=== PATIENT | female | born 1965 | race Caucasian/White ===

== ENCOUNTER 2019-02-10 19:20 | Emergency (ER) | payer OTHER ==
[~2019-02-10] VITALS: Ht 165.1 cm; Wt 69.1 kg
[~2019-02-10 19:20] MED LIST: DOCU250C91 PO; FAMO-135 PO; LORA0.5T2 PO; MACR100 PO; METF-960 PO; RISP.5 PO
[2019-02-10 20:09] LABS: GLUCOSE,POINT OF CARE 116 MG/DL (70-110)
[2019-02-10 21:30] VITALS: BP 110/78
[2019-02-10] MEDS ORDERED: IBUPROFEN 600 MG TABLET PO ONE (22:15)
== END 2019-02-10 22:18 | disposition home or self-care (01) ==
LOC: EMS 19:20
DX: S80.02XA Contusion of left knee, initial encounter (principal); I10 Essential (primary) hypertension; E11.9 Type 2 diabetes mellitus without complications; Z88.8 Allergy status to other drugs, medicaments and biological substances; Z79.899 Other long term (current) drug therapy; W05.0XXA Fall from non-moving wheelchair, initial encounter; Y93.89 Activity, other specified; Y92.89 Other specified places as the place of occurrence of the external cause; Y99.8 Other external cause status

== ENCOUNTER 2024-10-09 12:56 | Inpatient (IN) | payer OTHER ==
[~2024-10-09] VITALS: Ht 165.1 cm; Wt 70.5 kg
[~2024-10-09 12:56] MED LIST changes: +ACET-2247 PO; +CHOL500043 PO; +DOCU-412 PO; -DOCU250C91 PO; -FAMO-135 PO; +INSU100V SQ; +LEVE-71 PO; +LEVO-72 PO; -LORA0.5T2 PO; -MACR100 PO; +MAGN-169 PO; +METF-1211 PO; -METF-960 PO; +MULT-1239 PO; +PANT-31 PO; +QUET25TA PO; -RISP.5 PO; +RISP2TAB45 PO
[2024-10-09] MEDS ORDERED: 0.9% SODIUM CHLORIDE 10 ML SYRINGE IVP PRN (13:30)
[2024-10-09] MEDS: SODIUM CHLORIDE 0.9% 2,100 ML IV ONE (13:54)
[2024-10-09 13:56] LABS: BASOPHILS % (AUTO) 0.5 % (0.0-2.0); EOSINOPHILS % (AUTO) 1.1 % (1.0-6.0); HEMOGLOBIN 13.2 g/dL (12.0-16.0); LYMPHOCYTES # (AUTO) 1.3 K/uL (1.0-4.8); LYMPHOCYTES % (AUTO) 28.8 % (22.0-44.0); MEAN CORPUSCULAR HEMOGLOBIN 32.2 pg (26.0-34.0); MEAN CORPUSCULAR HGB CONC 33.8 G/dL (31.0-37.0); MEAN CORPUSCULAR VOLUME 95 fL (80-100); MONOCYTES # (AUTO) 0.4 K/uL (0.1-1.0); MONOCYTES % (AUTO) 7.8 % (2.0-9.0); NEUTROPHILS # (AUTO) 2.9 K/uL (1.8-7.7); NEUTROPHILS % (AUTO) 61.8 % (40.0-70.0); PLATELET COUNT (AUTO) 156 K/uL (150-450); RED BLOOD CELL COUNT(AUTO) 4.09 MIL/uL (4.00-5.20); RED CELL DISTRIBUTION WIDTH 13.7 % (11.5-14.5); WHITE BLOOD COUNT (AUTO) 4.6 K/uL (4.5-11.0)
[2024-10-09 14:02] LABS: ANION GAP 4 mmol/L (8-16); CALCIUM, TOTAL 9.6 mg/dL (8.8-10.5); CARBON DIOXIDE 34 mmol/L (22-29); CHLORIDE 103 mmol/L (98-107); CREATININE 0.64 mg/dL (0.60-1.30); GLOMERULAR FILTR. RATE CALC > 60 mL/min (>60); GLUCOSE,RANDOM 91 mg/dL (70-110); POTASSIUM 4.1 mmol/L (3.5-5.1); PROTHROMBIN TIME 11.4 SEC (9.4-11.6); SODIUM SERUM 141 mmol/L (136-145); UREA NITROGEN, BLOOD 11 mg/dL (7-18)
[2024-10-09 14:10] LABS: TROPONIN I-HIGH SENSITIVITY 5 ng/L (<51)
[2024-10-09 14:13] LABS: LACTIC ACID 1.3 mmol/L (0.4-2.0)
[2024-10-09] MEDS: VANCOMYCIN 1.5 GM/WATER(PEG) 300 ML IV ONE (14:23)
[2024-10-09] MEDS ORDERED: MULT-1303 PO (16:30)
[2024-10-09] MEDS ORDERED: HYDROCODONE/ACETAMINOPHEN 5-325 MG TABLET PO PRN (16:30)
[2024-10-09] MEDS ORDERED: MAGNESIUM HYDROXIDE SUSPENSION 30 ML UDCUP PO PRN (16:30)
[2024-10-09] MEDS ORDERED: LEVE-71 PO (16:30)
[2024-10-09] MEDS ORDERED: MORPHINE SULFATE 2 MG/ML SYRINGE IVP PRN (16:30)
[2024-10-09] MEDS ORDERED: SENN-374 PO (16:30)
[2024-10-09] MEDS ORDERED: ACETAMINOPHEN 325 MG TABLET PO PRN (16:30)
[2024-10-09] MEDS ORDERED: ONDANSETRON HCL 4 MG/2 ML VIAL IVP PRN (16:30)
[2024-10-09 19:08] VITALS: BP 149/68; PULSE 88; RESP 18; TEMP 97.4; O2SAT 97
[2024-10-09 20:25] VITALS: BP 140/47; PULSE 89; RESP 18; O2SAT 98
[2024-10-09] MEDS: QUEtiapine FUMARATE 25 MG TABLET PO SCH (20:43)
[2024-10-09] MEDS: DOCUSATE SODIUM 100 MG CAPSULE PO SCH (20:43)
[2024-10-09] MEDS: RisperiDONE 2 MG TABLET PO SCH (20:43)
[2024-10-09] MEDS: VANCOMYCIN 750 MG/WATER(PEG) 150 ML IV SCH (23:24)
[2024-10-09] MEDS: HEPARIN SODIUM,PORCINE 5,000 UNITS/ML VIAL SQ SCH (23:24)
[2024-10-09] MEDS: ZOLPIDEM TARTRATE 5 MG TABLET PO PRN (23:25)
[2024-10-10 05:40] VITALS: BP 121/90; PULSE 80; RESP 18; O2SAT 98
[2024-10-10 06:59] LABS: BASOPHILS % (AUTO) 0.4 % (0.0-2.0); EOSINOPHILS % (AUTO) 1.7 % (1.0-6.0); HEMATOCRIT 35.5 % (36-46); LYMPHOCYTES # (AUTO) 1.1 K/uL (1.0-4.8); LYMPHOCYTES % (AUTO) 28.7 % (22.0-44.0); MEAN CORPUSCULAR HGB CONC 33.8 G/dL (31.0-37.0); MEAN CORPUSCULAR VOLUME 95 fL (80-100); MONOCYTES # (AUTO) 0.4 K/uL (0.1-1.0); MONOCYTES % (AUTO) 10.2 % (2.0-9.0); NEUTROPHILS # (AUTO) 2.3 K/uL (1.8-7.7); PLATELET COUNT (AUTO) 139 K/uL (150-450); RED BLOOD CELL COUNT(AUTO) 3.75 MIL/uL (4.00-5.20); RED CELL DISTRIBUTION WIDTH 13.3 % (11.5-14.5); WHITE BLOOD COUNT (AUTO) 3.9 K/uL (4.5-11.0)
[2024-10-10 07:30] VITALS: BP 133/80; PULSE 67; RESP 18; TEMP 97.9; O2SAT 99
[2024-10-10 07:39] LABS: ANION GAP 6 mmol/L (8-16); CARBON DIOXIDE 31 mmol/L (22-29); CHLORIDE 104 mmol/L (98-107); CREATININE 0.59 mg/dL (0.60-1.30); GLOMERULAR FILTR. RATE CALC > 60 mL/min (>60); GLUCOSE,RANDOM 63 mg/dL (70-110); POTASSIUM 4.2 mmol/L (3.5-5.1); SODIUM SERUM 141 mmol/L (136-145); UREA NITROGEN, BLOOD 7 mg/dL (7-18)
[2024-10-10] MEDS: PANTOPRAZOLE SODIUM 40 MG DR TABLET PO SCH (08:34)
[2024-10-10 20:10] VITALS: BP 148/65; PULSE 84; RESP 18; TEMP 97.4; O2SAT 99
[2024-10-11 04:10] VITALS: BP 142/86; PULSE 72; RESP 18; TEMP 97.6; O2SAT 98
[2024-10-11 06:54] LABS: BASOPHILS % (AUTO) 0.5 % (0.0-2.0); HEMATOCRIT 39.3 % (36-46); HEMOGLOBIN 13.3 g/dL (12.0-16.0); LYMPHOCYTES # (AUTO) 1.3 K/uL (1.0-4.8); LYMPHOCYTES % (AUTO) 29.3 % (22.0-44.0); MEAN CORPUSCULAR HEMOGLOBIN 32.1 pg (26.0-34.0); MEAN CORPUSCULAR HGB CONC 33.9 G/dL (31.0-37.0); MEAN CORPUSCULAR VOLUME 95 fL (80-100); MONOCYTES # (AUTO) 0.4 K/uL (0.1-1.0); MONOCYTES % (AUTO) 7.9 % (2.0-9.0); NEUTROPHILS # (AUTO) 2.8 K/uL (1.8-7.7); NEUTROPHILS % (AUTO) 60.3 % (40.0-70.0); PLATELET COUNT (AUTO) 140 K/uL (150-450); RED BLOOD CELL COUNT(AUTO) 4.15 MIL/uL (4.00-5.20); RED CELL DISTRIBUTION WIDTH 13.8 % (11.5-14.5); WHITE BLOOD COUNT (AUTO) 4.6 K/uL (4.5-11.0)
[2024-10-11 07:04] LABS: ANION GAP 3 mmol/L (8-16); CALCIUM, TOTAL 9.6 mg/dL (8.8-10.5); CARBON DIOXIDE 33 mmol/L (22-29); CHLORIDE 103 mmol/L (98-107); GLOMERULAR FILTR. RATE CALC > 60 mL/min (>60); GLUCOSE,RANDOM 108 mg/dL (70-110); POTASSIUM 4.4 mmol/L (3.5-5.1); SODIUM SERUM 139 mmol/L (136-145); UREA NITROGEN, BLOOD 12 mg/dL (7-18)
[2024-10-11 07:18] LABS: VANCOMYCIN,RANDOM 24.7 mcg/mL (25.0-50.0)
[2024-10-11 07:47] VITALS: BP 128/79; PULSE 64; RESP 18; TEMP 98; O2SAT 98
[2024-10-11 20:00] VITALS: BP 128/82; PULSE 88; RESP 18; TEMP 97.6; O2SAT 96
[2024-10-11] MEDS: VANCOMYCIN 750 MG/WATER(PEG) 150 ML IV SCH (20:14)
[2024-10-12 04:32] VITALS: BP 129/60; PULSE 73; RESP 18; TEMP 96.7; O2SAT 99
[2024-10-12 07:50] LABS: ANION GAP 3 mmol/L (8-16); CALCIUM, TOTAL 9.6 mg/dL (8.8-10.5); CARBON DIOXIDE 35 mmol/L (22-29); CHLORIDE 103 mmol/L (98-107); CREATININE 0.68 mg/dL (0.60-1.30); GLOMERULAR FILTR. RATE CALC > 60 mL/min (>60); GLUCOSE,RANDOM 104 mg/dL (70-110); POTASSIUM 4.4 mmol/L (3.5-5.1); SODIUM SERUM 141 mmol/L (136-145); UREA NITROGEN, BLOOD 14 mg/dL (7-18)
[2024-10-12 07:57] LABS: BASOPHILS % (AUTO) 0.4 % (0.0-2.0); EOSINOPHILS % (AUTO) 2.4 % (1.0-6.0); HEMOGLOBIN 12.9 g/dL (12.0-16.0); LYMPHOCYTES # (AUTO) 1.2 K/uL (1.0-4.8); LYMPHOCYTES % (AUTO) 25.1 % (22.0-44.0); MEAN CORPUSCULAR HGB CONC 33.9 G/dL (31.0-37.0); MEAN CORPUSCULAR VOLUME 94 fL (80-100); MONOCYTES # (AUTO) 0.4 K/uL (0.1-1.0); MONOCYTES % (AUTO) 8.5 % (2.0-9.0); NEUTROPHILS % (AUTO) 63.6 % (40.0-70.0); PLATELET COUNT (AUTO) 132 K/uL (150-450); RED BLOOD CELL COUNT(AUTO) 4.04 MIL/uL (4.00-5.20); RED CELL DISTRIBUTION WIDTH 13.6 % (11.5-14.5); WHITE BLOOD COUNT (AUTO) 4.7 K/uL (4.5-11.0)
[2024-10-12 09:12] VITALS: BP 119/62; PULSE 63; RESP 16; O2SAT 99
[2024-10-12 15:55] VITALS: BP 124/66; PULSE 66; RESP 18; TEMP 97.8; O2SAT 99
[2024-10-12] MEDS: CLINDAMYCIN HCL 300 MG CAPSULE PO SCH (16:41)
[2024-10-12 20:35] VITALS: BP 112/76; PULSE 84; RESP 18; TEMP 98.3; O2SAT 99
[2024-10-13 05:26] VITALS: BP 119/65; PULSE 64; RESP 18; TEMP 98.5; O2SAT 98
[2024-10-13 07:19] LABS: ANION GAP 4 mmol/L (8-16); CALCIUM, TOTAL 9.6 mg/dL (8.8-10.5); CARBON DIOXIDE 34 mmol/L (22-29); CHLORIDE 102 mmol/L (98-107); CREATININE 0.64 mg/dL (0.60-1.30); GLOMERULAR FILTR. RATE CALC > 60 mL/min (>60); GLUCOSE,RANDOM 88 mg/dL (70-110); POTASSIUM 4.7 mmol/L (3.5-5.1); SODIUM SERUM 140 mmol/L (136-145); UREA NITROGEN, BLOOD 21 mg/dL (7-18)
[2024-10-13] MEDS: BISACODYL 10 MG RECTAL RECTAL SUPPOSITORY PR PRN (08:04)
[2024-10-13 08:19] VITALS: BP 111/75; PULSE 73; RESP 18; TEMP 98.8; O2SAT 95
[2024-10-13] MEDS ORDERED: CLIN300C58 PO (11:14)
[2024-10-13] MEDS ORDERED: DOCU-385 PO (11:17)
[2024-10-13] MEDS ORDERED: HEPA500018 SQ (11:18)
[2024-10-13] MEDS ORDERED: RISP-32 PO (11:22)
[2024-10-13] MEDS ORDERED: BISA10SU11 PR (11:24)
[2024-10-13] MEDS ORDERED: HYDR-4062 PO (11:26)
[2024-10-13] MEDS: LACTULOSE 20 GM/30 ML SOLUTION UDCUP PO PRN (12:41)
[2024-10-13] MEDS: MULTIVITAMINS WITH MINERALS, THERAPEUTIC TABLET PO SCH (12:42)
[2024-10-13 16:47] VITALS: BP 113/87; PULSE 82; RESP 18; TEMP 97; O2SAT 97
[2024-10-16] MEDS ORDERED: CHOLECALCIFEROL (VIT D3) 50,000 UNITS [1,250 MCG] CAPSULE PO SCH (09:00)
== END 2024-10-13 17:30 | DRG 383 ==
LOC: EMS 13:13 → EDH 16:16 → 6S 19:37
PROVIDERS: ADMIT Internal Medicine; ATTEND Internal Medicine
DX: L03.116 Cellulitis of left lower limb (principal); L89.229 Pressure ulcer of left hip, unspecified stage; R65.10 Systemic inflammatory response syndrome (SIRS) of non-infectious origin without acute organ dysfunction; R53.2 Functional quadriplegia; E11.9 Type 2 diabetes mellitus without complications; I10 Essential (primary) hypertension; G40.909 Epilepsy, unspecified, not intractable, without status epilepticus; R13.10 Dysphagia, unspecified; Z93.1 Gastrostomy status; Z74.01 Bed confinement status
CPT/HCPCS: 71045; 74176; 80048; 80202; 83605; 84145; 84484; 85025; 85610; 85651; 87040; 92526; 92610; 93005; 96365; 96372; 97162; 97165; 97530; 97535; 99291; J1644; 36415-L1; 36415-TC